=== PATIENT | female | born 1970 | race Caucasian/White ===

== ENCOUNTER 2017-01-02 08:25 | Outpatient (CLI) | payer OTHER | END 2017-01-02 08:26 | disposition home or self-care (01) | DX: E03.9 Hypothyroidism, unspecified (principal) ==

== ENCOUNTER 2017-01-21 10:58 | Outpatient (CLI) | payer OTHER ==
[2017-01-21 18:55] LABS: HCT - HEMATOCRIT 44.9 % (37.0-47.0); HGB - HEMOGLOBIN 14.7 g/dL (12.0-16.0); MEAN CORPUSCULAR HEMOGLOBIN 27.5 pg (27.0-31.0); MEAN CORPUSCULAR HGB CONC 32.8 g/dL (32.0-36.0); MEAN PLATELET VOLUME 9.3 fL (7.9-10.8); RED BLOOD COUNT 5.35 10^6/uL (4.20-5.40); RED CELL DISTRIBUTION WIDTH 14.8 % (12.0-15.0); WHITE BLOOD COUNT 6.2 x10^3/uL (4.8-10.8)
[2017-01-21 19:15] LABS: ALBUMIN/GLOBULIN RATIO 1.1 (1.0-2.2); BILIRUBIN,TOTAL 0.5 mg/dL (0.2-1.0); BUN - BLOOD UREA NITROGEN 11 mg/dL (6-20); CALCIUM 9.3 mg/dL (8.5-10.3); CARBON DIOXIDE - CO2 27 mmol/L (21-32); CHLORIDE 105 mmol/L (101-111); CREATININE 0.7 mg/dL (0.4-1.0); GFR - MDRD 91 (>89); GLUCOSE 96 mg/dL (70-100); POTASSIUM 4.5 mmol/L (3.5-5.0); SODIUM 138 mmol/L (135-145); TOTAL PROTEIN 7.8 g/dL (6.7-8.2); URIC ACID 4.8 mg/dL (2.6-7.2)
== END 2017-01-21 10:59 | disposition home or self-care (01) ==
LOC: LAB.WCP 10:58
PROVIDERS: ATTEND Family Medicine
DX: M10.9 Gout, unspecified (principal)
CPT/HCPCS: 36415; 80053; 84550; 85651; 86140

== ENCOUNTER 2017-04-28 09:28 | Outpatient (CLI) | payer OTHER ==
[2017-04-28 13:59] LABS: BASOPHILS % (AUTO) 0.9 %; EOSINOPHILS # (AUTO) 0.1 10^3/uL (0.0-0.7); EOSINOPHILS % (AUTO) 1.8 %; HCT - HEMATOCRIT 43.7 % (37.0-47.0); HGB - HEMOGLOBIN 14.8 g/dL (12.0-16.0); LYMPHOCYTES # (AUTO) 1.5 10^3/uL (1.5-3.5); LYMPHOCYTES % (AUTO) 28.6 %; MEAN CORPUSCULAR HGB CONC 33.8 g/dL (32.0-36.0); MEAN CORPUSCULAR VOLUME 82.7 fL (81.0-99.0); MEAN PLATELET VOLUME 9.3 fL (7.9-10.8); MONOCYTES # (AUTO) 0.4 10^3/uL (0.0-1.0); MONOCYTES % (AUTO) 7.3 %; NEUTROPHILS # (AUTO) 3.2 10^3/uL (1.5-6.6); NEUTROPHILS % (AUTO) 61.4 %; NUCLEATED RED BLOOD CELLS AUTO 0.1 /100WBC; RED BLOOD COUNT 5.29 10^6/uL (4.20-5.40); RED CELL DISTRIBUTION WIDTH 14.5 % (12.0-15.0); UNCORRECTED WHITE BLOOD COUNT 5.3 x10^3/uL; WHITE BLOOD COUNT 5.3 x10^3/uL (4.8-10.8)
[2017-04-28 14:01] LABS: ALBUMIN/GLOBULIN RATIO 1.1 (1.0-2.2); BILIRUBIN,TOTAL 0.4 mg/dL (0.2-1.0); CALCIUM 9.2 mg/dL (8.5-10.3); CREATININE 0.8 mg/dL (0.4-1.0); POTASSIUM 4.7 mmol/L (3.5-5.0); TOTAL PROTEIN 7.9 g/dL (6.7-8.2)
== END 2017-04-28 09:29 | disposition home or self-care (01) ==
LOC: LAB.WCP 09:28
PROVIDERS: ATTEND Family Medicine
DX: R10.11 Right upper quadrant pain (principal)
CPT/HCPCS: 36415; 80053; 82150; 83690; 85025

== ENCOUNTER 2017-05-05 16:00 | Outpatient (CLI) | payer OTHER | END 2017-05-05 16:01 | disposition home or self-care (01) | LOC: LAB.R 16:00 | PROVIDERS: ATTEND Physician Assistant Medical | DX: R30.0 Dysuria (principal) | CPT/HCPCS: 87086 ==

== ENCOUNTER 2017-05-08 13:40 | Outpatient (CLI) | payer OTHER ==
[2017-05-08] MEDS ORDERED: IOPAMIDOL-300 100 ML VIAL IVP ONE (15:09)
[2017-05-08] MEDS ORDERED: IOPAMIDOL-300 50 ML VIAL PO ONE (15:09)
--- NOTE | 2017-05-08 15:40 | CT Report ---
CT OF THE ABDOMEN AND PELVIS WITH CONTRAST: 05/08/2017 CLINICAL INDICATION: Right upper quadrant pain. COMPARISON: 08/01/2011. TECHNIQUE: Axial CT images of the abdomen and pelvis were obtained with 100 mL of Isovue-300 intraven ously as well as oral contrast. FINDINGS: Limited evaluation of the lung bases is unremarkable. ABDOMEN: The previously seen intraperitoneal hemorrhage has resolved. Postoperative changes of cholec ystectomy are present. The liver, spleen, pancreas, kidneys and adrenal glands appear unremarkable. N o bowel dilatation, free gas, or free fluid is present. No abdominal adenopathy is seen. PELVIS: Postoperative changes of hysterectomy are present. Sigmoid diverticulosis is present, without CT evidence of diverticulitis. No pelvic adenopathy or free fluid is present. The osseous structures demonstrate degenerative changes. IMPRESSION: DIVERTICULOSIS, WITHOUT CT EVIDENCE OF DIVERTICULITIS. POSTOPERATIVE CHANGES. NO EVIDENT ETIOLOGY FOR PATIENT'S RIGHT UPPER QUADRANT PAIN. In accordance with CT protocol optimization, one or more of the following dose reduction techniques w ere utilized for this exam: automated exposure control, adjustment of mA and/or KV based on patient size, or use of iterative reconstructive technique. JOB #: [id number] EXT JOB #:[id number]
== END 2017-05-08 13:41 | disposition home or self-care (01) ==
LOC: DI 13:40
PROVIDERS: ATTEND Physician Assistant Medical
DX: R10.11 Right upper quadrant pain (principal); K57.30 Diverticulosis of large intestine without perforation or abscess without bleeding
CPT/HCPCS: 74177; Q9967

== ENCOUNTER 2018-03-05 09:22 | Outpatient (CLI) | payer OTHER ==
[2018-03-05 12:21] LABS: BASOPHILS # (AUTO) 0.1 10^3/uL (0.0-0.1); BASOPHILS % (AUTO) 1.2 %; EOSINOPHILS # (AUTO) 0.1 10^3/uL (0.0-0.7); EOSINOPHILS % (AUTO) 2.2 %; HGB - HEMOGLOBIN 14.2 g/dL (12.0-16.0); LYMPHOCYTES # (AUTO) 1.8 10^3/uL (1.5-3.5); LYMPHOCYTES % (AUTO) 30.9 %; MEAN CORPUSCULAR HEMOGLOBIN 28.3 pg (27.0-31.0); MEAN CORPUSCULAR HGB CONC 33.3 g/dL (32.0-36.0); MEAN CORPUSCULAR VOLUME 85.1 fL (81.0-99.0); MEAN PLATELET VOLUME 8.1 fL (7.9-10.8); MONOCYTES # (AUTO) 0.5 10^3/uL (0.0-1.0); MONOCYTES % (AUTO) 8.5 %; NEUTROPHILS # (AUTO) 3.3 10^3/uL (1.5-6.6); NEUTROPHILS % (AUTO) 57.2 %; PLT - PLATELET COUNT 263 10^3/uL (130-450); RED BLOOD COUNT 5.02 10^6/uL (4.20-5.40); RED CELL DISTRIBUTION WIDTH 14.9 % (12.0-15.0); WHITE BLOOD COUNT 5.8 x10^3/uL (4.8-10.8)
[2018-03-05 13:11] LABS: ALBUMIN 3.4 g/dL (3.2-5.5); ALBUMIN/GLOBULIN RATIO 0.8 (1.0-2.2); ALKALINE PHOSPHATASE 48 IU/L (42-121); ALT ALANINE AMINOTRANSFERASE 21 IU/L (10-60); AST ASPARTATE AMINOTRANSFERASE 19 IU/L (10-42); BILIRUBIN,TOTAL 0.3 mg/dL (0.2-1.0); BUN - BLOOD UREA NITROGEN 13 mg/dL (6-20); CALCIUM 9.1 mg/dL (8.5-10.3); CARBON DIOXIDE - CO2 26 mmol/L (21-32); CHLORIDE 102 mmol/L (101-111); CHOL/HDL RATIO 4.7 (<4.4); CHOLESTEROL 196 mg/dL; CREATININE 0.6 mg/dL (0.4-1.0); GFR - MDRD 108 (>89); GLUCOSE 101 mg/dL (70-100); HDL CHOLESTEROL 42 mg/dL; LDL CHOLESTEROL,CALCULATED 104 mg/dL; LDL/HDL RATIO 2.5 (<4.4); SODIUM 136 mmol/L (135-145); TOTAL PROTEIN 7.5 g/dL (6.7-8.2); VLDL CHOLESTEROL 50 mg/dL
[2018-03-05 13:19] LABS: HB2 TOTAL 15.2 g/dL; HEMOGLOBIN A1C 0.54 g/dL; HEMOGLOBIN A1C % 5.4 % (4.6-6.2)
== END 2018-03-05 09:23 | disposition home or self-care (01) ==
LOC: LAB.WCP 09:22
PROVIDERS: ATTEND Physician Assistant Medical
DX: Z00.00 Encounter for general adult medical examination without abnormal findings (principal); E88.81 Metabolic syndrome and other insulin resistance
CPT/HCPCS: 36415; 80053; 80061; 83036; 83721; 84443; 85025

== ENCOUNTER 2018-06-17 14:26 | Outpatient (CLI) | payer OTHER ==
--- NOTE | 2018-06-18 09:17 | Mammography Report ---
Reason: SCREENING MAMMO Procedure Date: 06/17/2018 Accession Number: [id number] / [id number] Procedure: MGN - Screening Mammo Dig Bilat CPT Code: FULL RESULT: EXAM: Screening Mammo Dig Bilat DATE: 06/17/2018 2:47 PM CLINICAL HISTORY: Routine screening TECHNIQUE: Bilateral CC and MLO views were obtained. COMPARISON: 01/08/2016 and 12/14/2013 FINDINGS: The breast tissue is heterogeneously dense. There has been no significant interval change. No suspicious masses, clustered microcalcifications, or regions of architectural distortion are identified. IMPRESSION: Negative examination. RECOMMENDATION: Routine annual screening unless otherwise clinically indicated. BIRADS CATEGORY 1: Negative STANDARD QUALIFYING STATEMENTS: 1. This examination was reviewed with the aid of Computer-Aided Detection (CAD). 2. A negative or benign imaging report should not delay biopsy if clinically suspicious findings are present. Consider surgical consultation if warrented. More than 5% of cancers are not identified by imaging. 3. Dense breasts may obscure an underlying neoplasm.
== END 2018-06-17 14:27 | disposition home or self-care (01) ==
LOC: DI.N 14:26
DX: Z12.31 Encounter for screening mammogram for malignant neoplasm of breast (principal)
CPT/HCPCS: 77067

== ENCOUNTER 2018-06-29 11:47 | Outpatient (CLI) | payer OTHER ==
[2018-06-29 18:43] LABS: BASOPHILS # (AUTO) 0.2 10^3/uL (0.0-0.1); BASOPHILS % (AUTO) 3.3 %; EOSINOPHILS # (AUTO) 0.1 10^3/uL (0.0-0.7); EOSINOPHILS % (AUTO) 1.5 %; HGB - HEMOGLOBIN 14.8 g/dL (12.0-16.0); LYMPHOCYTES # (AUTO) 2.2 10^3/uL (1.5-3.5); LYMPHOCYTES % (AUTO) 34.1 %; MEAN CORPUSCULAR HEMOGLOBIN 28.1 pg (27.0-31.0); MEAN CORPUSCULAR HGB CONC 33.5 g/dL (32.0-36.0); MEAN CORPUSCULAR VOLUME 83.9 fL (81.0-99.0); MEAN PLATELET VOLUME 8.6 fL (7.9-10.8); MONOCYTES # (AUTO) 0.5 10^3/uL (0.0-1.0); MONOCYTES % (AUTO) 8.6 %; NEUTROPHILS # (AUTO) 3.3 10^3/uL (1.5-6.6); NEUTROPHILS % (AUTO) 52.5 %; PLT - PLATELET COUNT 246 10^3/uL (130-450); RED BLOOD COUNT 5.27 10^6/uL (4.20-5.40); RED CELL DISTRIBUTION WIDTH 15.5 % (12.0-15.0); WHITE BLOOD COUNT 6.3 x10^3/uL (4.8-10.8)
[2018-06-29 18:55] LABS: ALBUMIN 4.1 g/dL (3.2-5.5); ALBUMIN/GLOBULIN RATIO 1.1 (1.0-2.2); BILIRUBIN,TOTAL 0.5 mg/dL (0.2-1.0); CALCIUM 9.6 mg/dL (8.5-10.3); CREATININE 0.8 mg/dL (0.4-1.0); TOTAL PROTEIN 7.9 g/dL (6.7-8.2)
== END 2018-06-29 11:48 | disposition home or self-care (01) ==
LOC: LAB.WCP 11:47
PROVIDERS: ATTEND Nurse Practitioner
DX: R10.31 Right lower quadrant pain (principal); K62.5 Hemorrhage of anus and rectum
CPT/HCPCS: 36415; 80053; 85025

== ENCOUNTER 2018-06-29 15:39 | Outpatient (CLI) | payer OTHER ==
[2018-06-29] MEDS ORDERED: IOPAMIDOL-300 100 ML VIAL ONE (15:47)
[2018-06-29] MEDS ORDERED: IOPAMIDOL-300 50 ML VIAL ONE (15:47)
[2018-06-29] MEDS ORDERED: IOPAMIDOL-300 50 ML VIAL PO ONE (17:19)
[2018-06-29] MEDS ORDERED: IOPAMIDOL-300 100 ML VIAL IVP ONE (17:19)
--- NOTE | 2018-06-29 17:55 | CT Report ---
Reason: ABDOMINAL PAIN,RIGHT LOWER QUADRANT,RECTAL BLEEDIN Procedure Date: 06/29/2018 Accession Number: [id number] / [id number] Procedure: CT - Abdomen/Pelvis W/ CPT Code: FULL RESULT: EXAM: CT ABDOMEN AND PELVIS EXAM DATE: 06/29/2018 05:12 PM. CLINICAL HISTORY: Abdominal pain, right lower quadrant, rectal bleeding. COMPARISONS: ABDOMEN/PELVIS W/ 05/08/2017 3:03 PM. TECHNIQUE: Routine helical CT imaging was performed through the abdomen and pelvis. IV contrast: ISOVUE 300 100mL. Enteric contrast: Oral contrast. Reconstructions: Coronal and sagittal. In accordance with CT protocol optimization, one or more of the following dose reduction techniques were utilized for this exam: automated exposure control, adjustment of mA and/or KV based on patient size, or use of iterative reconstructive technique. FINDINGS: Lung Bases: Unremarkable. Liver: Stable enlarged, fatty infiltration. Gallbladder/Bile Ducts: Cholecystectomy. No biliary duct dilatation. Spleen: Normal. Pancreas: Normal. Adrenal Glands: Normal. Kidneys: Normal. No masses or hydronephrosis. Peritoneal Cavity/Bowel: Diverticula off the colon. Oral contrast extends through to the terminal ileum. No free fluid, free air or adenopathy. No masses or acute inflammatory process. The appendix is well visualized and normal. Pelvic Organs: Remote hysterectomy. No stones in the small caliber urinary bladder. No adnexal mass lesions nor free fluid. Normal rectum. Vasculature: No aneurysms or other significant abnormality. Bones: No significant abnormality. Other: None. IMPRESSION: 1. Hepatomegaly with fatty infiltration. 2. Colonic diverticulosis. 3. Stable, unremarkable exam. No radiographic explanation for this lady's presenting signs and symptoms. RADIA
== END 2018-06-29 15:40 | disposition home or self-care (01) ==
LOC: DI 15:39
PROVIDERS: ATTEND Nurse Practitioner
DX: R10.31 Right lower quadrant pain (principal); K62.5 Hemorrhage of anus and rectum; K76.0 Fatty (change of) liver, not elsewhere classified; K57.30 Diverticulosis of large intestine without perforation or abscess without bleeding
CPT/HCPCS: 74177; Q9967; 36415; 80053; 85025

== ENCOUNTER 2019-01-27 09:53 | Day surgery (SDC) | payer OTHER ==
[~2019-01-27 09:53] MED LIST: LIDO GARGLE 30 ML BOTTLE ONE
[2019-01-27] MEDS ORDERED: PROPOFOL 200 MG/20 ML VIAL IVP ONE (09:54)
[2019-01-27] MEDS ORDERED: MIDAZOLAM 2 MG/2 ML VIAL IVP ONE (09:54)
[2019-01-27] MEDS ORDERED: fentaNYL 250 MCG/5 ML VIAL IVP ONE (09:54)
[2019-01-27] MEDS ORDERED: LIDOCAINE-MPF 2% 5 ML VIAL IM ONE (09:54)
[2019-01-27] MEDS ORDERED: LACTATED RINGERS 1,000 ML IV ONE ×2 (10:31→12:49)
[2019-01-27] MEDS ORDERED: LIDO GARGLE 30 ML BOTTLE TOP ONE (11:31)
--- NOTE | 2019-01-27 12:05 | ANESTHESIA ---
Pre-Anesthesia VS, & Labs - Diagnosis rectal bleeding - Procedure colonoscopy, egd Vital Signs: Temp Pulse Resp BP Pulse Ox 36.8 C 82 16 144/85 H 97 01/27/19 10:03 01/27/19 10:03 01/27/19 10:03 01/27/19 10:03 01/27/19 10:03 Height 5 ft 4 in Weight (kg) 109.7 kg Body Mass Index 42.0 - NPO >8 hours - Is Patient ?: No Home Medications and Allergies Indomethacin 25 mg PO DAILY PRN 06/08/15 Omeprazole [Prilosec] 20 mg PO DAILY 06/08/15 Thyroid,Pork [[place] Thyroid] 60 mg PO DAILY 06/08/15 diazePAM [Diazepam] 7.5 mg PO DAILY 06/08/15 Allergies/Adverse Reactions: Allergies Allergy/AdvReac Type Severity Reaction Status Date / Time alprazolam [From Xanax] Allergy Unknown Verified 01/27/19 10:17 buspirone Allergy Unknown Verified 01/27/19 10:17 levothyroxine sodium Allergy Unknown Verified 01/27/19 10:17 [From Synthroid] morphine Allergy Unknown Verified 01/27/19 10:17 Anes History & Medical History - Anesthetic History Anesthesia Complications: reports: Post-Operative Nausea/Vomiting - Medical History Cardiovascular: reports: Other Pulmonary: reports: Sleep apnea Gastrointestinal: reports: GERD Urinary: reports: None Musculoskeletal: reports: Osteoarthritis, Gout, Other Endocrine/Autoimmune: reports: HyPOthyroidism Skin: reports: None Smoking Status: Current every day smoker - Surgical History General: Cholecystectomy Gynecologic: Hysterectomy Exam Dental: WNL, Poor dentition Mouth Opening: Greater than 4 Fingerbreadths Mallampati classification: II Respiratory: Lungs clear Cardiovascular: Regular rate Plan Anesthesia Type: MAC Consent for Procedure(s) Verified and Reviewed: No Code Status: Attempt Resuscitation ASA classification: 2-Mild systemic disease (rescue endo) Is this case an emergency?: Yes
[2019-01-27 13:28] VITALS: BP 134/64
== END 2019-01-27 09:54 | disposition home or self-care (01) ==
LOC: SDS 09:53
PROVIDERS: ATTEND Internal Medicine Gastroenterology
PROC: 0DBN8ZZ Excision of Sigmoid Colon, Via Natural or Artificial Opening Endoscopic (ICD-10-PCS; 2019-01-27)
PROC: 0DB98ZX Excision of Duodenum, Via Natural or Artificial Opening Endoscopic, Diagnostic (ICD-10-PCS; principal; 2019-01-27 11:30)
PROC: 0DB78ZX Excision of Stomach, Pylorus, Via Natural or Artificial Opening Endoscopic, Diagnostic (ICD-10-PCS; 2019-01-27 11:30)
DX: K63.5 Polyp of colon (principal); K57.30 Diverticulosis of large intestine without perforation or abscess without bleeding; K21.9 Gastro-esophageal reflux disease without esophagitis; K64.8 Other hemorrhoids; K58.9 Irritable bowel syndrome, unspecified; G47.33 Obstructive sleep apnea (adult) (pediatric); E88.81 Metabolic syndrome and other insulin resistance; E78.5 Hyperlipidemia, unspecified; M10.9 Gout, unspecified; E66.01 Morbid (severe) obesity due to excess calories; E03.9 Hypothyroidism, unspecified; F41.9 Anxiety disorder, unspecified; F32.9 Major depressive disorder, single episode, unspecified; F17.210 Nicotine dependence, cigarettes, uncomplicated; Z90.49 Acquired absence of other specified parts of digestive tract
CPT/HCPCS: 43239; 45380; A9270; J3010; J7120

== ENCOUNTER 2019-06-14 09:00 | Outpatient (CLI) | payer OTHER ==
--- NOTE | 2019-06-14 16:02 | XRAY Report ---
Reason: LEFT 3RD FINGER PAIN Procedure Date: 06/14/2019 Accession Number: [id number] / [id number] Procedure: WCP - Finger(s) LT CPT Code: FULL RESULT: EXAM: LEFT THIRD DIGIT RADIOGRAPHY EXAM DATE: 06/14/2019 03:55 PM. CLINICAL HISTORY: Left third finger pain. COMPARISON: None. TECHNIQUE: 3 views. FINDINGS: Bones: Normal. No fracture or bone lesion. Joints: Normal. No subluxations. Soft Tissues: Questionable subtle density projecting over the medial portion of the soft tissues of the proximal phalanx of the third ray, not felt to represent a foreign body. IMPRESSION: No fracture or dislocation. No definite radiopaque foreign body. If there is concern for a foreign body, see discussion above and correlate to physical examination for focal tenderness. RADIA
== END 2019-06-14 23:59 | disposition home or self-care (01) ==
LOC: DI.WCP 09:00 → EDSTATUS 12:35 → DI.WCP 23:59
PROVIDERS: ATTEND Physician Assistant
DX: M79.645 Pain in left finger(s) (principal)
CPT/HCPCS: 73140

== ENCOUNTER 2019-07-07 15:35 | Outpatient (CLI) | payer OTHER ==
--- NOTE | 2019-07-08 10:37 | Ultrasound Report ---
Reason: LYMPHADENOPATHY Procedure Date: 07/07/2019 Accession Number: [id number] / [id number] Procedure: US - Chest CPT Code: Final Report FULL RESULT: EXAM: ULTRASOUND 07/07/2019 04:10 PM LYMPHADENOPATHY. NONE TECHNIQUE: Real-time sonographic imaging was performed by the gluing machine operator automatic utilizing color-flow. Multiple admissions representative static images were saved for review. FINDINGS: No cysts, lymph node or mass identified in area of concern IMPRESSION: No ultrasonographic findings in the right axillary region. Clinical follow-up RADIA
== END 2019-07-07 15:36 | disposition home or self-care (01) ==
LOC: DI 15:35
PROVIDERS: ATTEND Physician Assistant
DX: R59.0 Localized enlarged lymph nodes (principal)
CPT/HCPCS: 76604

== ENCOUNTER 2019-07-08 12:15 | Outpatient (CLI) | payer OTHER ==
--- NOTE | 2019-07-11 08:20 | Mammography Report ---
Reason: ROUTINE MAMMO Procedure Date: 07/08/2019 Accession Number: [id number] / [id number] Procedure: MGN - Screening Mammo Dig Bilat CPT Code: Final Report FULL RESULT: EXAM: Screening Mammo Dig Bilat DATE: 07/08/2019 12:49 PM CLINICAL HISTORY: Routine screening. No reported personal or family history of breast cancer. TECHNIQUE: (B) - Bilateral CC and MLO views were obtained. COMPARISON: 06/17/2018 through 12/14/2013 PARENCHYMAL PATTERN: (D) - The breasts demonstrate heterogeneously dense fibroglandular parenchyma bilaterally. FINDINGS: Bilateral breasts: There are no suspicious masses, calcifications, or areas of distortion. IMPRESSION: Negative examination. BI-RADS category 1. RECOMMENDATION: (ANNUAL) - Recommend routine annual screening mammography. BI-RADS CATEGORY: (1) - Negative. STANDARD QUALIFYING STATEMENTS: 1. This examination was not reviewed with the aid of Computer-Aided Detection (CAD). 2. A negative or benign imaging report should not preclude biopsy if clinically suspicious findings are present. 3. Dense breasts may obscure an underlying neoplasm. 4. This examination was reviewed without the aid of 3D breast imaging (tomosynthesis).
== END 2019-07-08 12:16 | disposition home or self-care (01) ==
LOC: DI.N 12:15
DX: Z12.31 Encounter for screening mammogram for malignant neoplasm of breast (principal)
CPT/HCPCS: 77067

== ENCOUNTER 2020-05-19 15:36 | Outpatient (CLI) | payer OTHER ==
--- NOTE | 2020-05-21 14:32 | MRI Report ---
PROCEDURE: Thoracic Spine W/O INDICATIONS: PAIN IN THORACIC SPINE, LOW BACK PAIN TECHNIQUE: Noncontrast sagittal T1 spine echo and T2 fast spin echo, sagittal STIR, axial T1 and T2 fast spin ec ho through the thoracic spine. COMPARISON: None. FINDINGS: Image quality: Excellent. Alignment and Curvature: There is trace T1-T2 and T2-T3 anterolisthesis. There is convex right curva ture of the upper thoracic spine. 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 Reactive endplate changes noted ad jacent to the T9-T10 and T10-T11 discs. No acute vertebral body compression fractures. Spinal Cord: Visualized spinal cord is normal in size and signal. Paraspinous Soft Tissues: No paravertebral masses. Miscellaneous: Mild degenerative disc changes noted throughout the thoracic spine. Mild mid thoracic spine facet arthropathy. On axial images, central canal and foramina appear widely patent at all sca nned levels. IMPRESSION: 1. Fused T3 and T4 vertebral bodies. 2. Multilevel degenerative disc disease. 3. Multilevel facet arthropathy. 4. No central stenosis. 5. No neural foraminal narrowing. 6. No neural compression. 7. No vertebral body compression fracture. Reviewed by: Tonya Houston MD, PhD on 05/21/2020 2:31 PM PDT Approved by: Tonya Houston MD, PhD on 05/21/2020 2:31 PM PDT Station ID: [id number]
--- NOTE | 2020-05-21 15:19 | MRI Report ---
PROCEDURE: Lumbar Spine W/O INDICATIONS: LOW BACK PAIN TECHNIQUE: Noncontrast sagittal T1 spin echo and T2 fast echo, sagittal STIR, axial T1 and T2 fast spin echo thr ough the lumbar spine. In cases with scoliosis, additional coronal T2 fast spin echo may be performe d. COMPARISON: None. FINDINGS: Image quality: Excellent. Alignment and Curvature: There is normal bony alignment. Bone Marrow: Marrow is of normal overall signal. No acute vertebral body compression fractures. Spinal Cord: Conus medullaris terminates at the L1-L2 disc level. Visualized cord demonstrates norm al signal and size. Paraspinous Soft Tissues: No paravertebral masses. T12-L1: Normal in appearance. L1-L2: Normal in appearance. L2-L3: Normal in appearance. L3-L4: Loss of disc signal. Mild, diffuse disc bulge. Large left central disc protrusion. Disc prot rusion abuts and displaces the traversing left L4 nerve root. Mild narrowing of the central canal. No neural foraminal narrowing. L4-L5: Loss of disc signal. Minimal, diffuse disc bulge. No central stenosis. No neural foraminal n arrowing. No neural compression. L5-S1: Normal in appearance. IMPRESSION: 1. Mild L3-L4 and L4-L5 degenerative disc disease. 2. Large L3-L4 left central disc protrusion which abuts and displaces the traversing left L4 nerve ro ot. Please correlate with clinical data. 3. Mild L3-L4 central canal narrowing. 4. No neural foraminal narrowing. Reviewed by: Tonya Houston MD, PhD on 05/21/2020 3:18 PM PDT Approved by: Tonya Houston MD, PhD on 05/21/2020 3:18 PM PDT Station ID: [id number]
== END 2020-05-19 15:37 | disposition home or self-care (01) ==
LOC: DI 15:36
PROVIDERS: ATTEND Physician Assistant Medical
DX: M51.34 Other intervertebral disc degeneration, thoracic region (principal); M51.36 Other intervertebral disc degeneration, lumbar region; M48.061 Spinal stenosis, lumbar region without neurogenic claudication; M51.26 Other intervertebral disc displacement, lumbar region
CPT/HCPCS: 72146; 72148

== ENCOUNTER 2020-08-03 12:35 | Outpatient (CLI) | payer OTHER ==
--- NOTE | 2020-08-06 09:47 | Mammography Report ---
BILATERAL DIGITAL SCREENING MAMMOGRAM 3D/2D: 08/03/2020 CLINICAL: Routine screening. Comparison is made to exams dated: 07/08/2019 mammogram, 06/17/2018 mammogram, 01/08/2016 mammogram, a nd 12/14/2013 mammogram - [facility]. The tissue of both breasts is heterogeneously dense. This may lower the sensitivity of mammography. No significant masses, calcifications, or other findings are seen in either breast. There has been no significant interval change. IMPRESSION: NEGATIVE There is no mammographic evidence of malignancy. A 1 year screening mammogram is recommended. This exam was interpreted at Station ID: [id number]. NOTE: For mammograms, a report in lay terms will be sent to the patient. Approximately 15% of breast malignancies will not be visualized mammographically. In the management of a palpable breast mass, a negative mammogram must not discourage biopsy of a clinically suspicious lesion. Electronically Signed By: Reuben Mello acr/penrad:08/03/2020 14:37:13 ACR BI-RADS Category 1: Negative 3341F PARENCHYMAL PATTERN: (D) - The breast(s) demonstrate(s) heterogeneously dense fibroglandular robin quintana. BI-RADS CATEGORY: (1) - 1 RECOMMENDATION: (ANNUAL) - Recommend routine annual screening mammography. [id number] 1 year screening LATERALITY: (B)
== END 2020-08-03 12:36 | disposition home or self-care (01) ==
LOC: DI.N 12:35
DX: Z12.31 Encounter for screening mammogram for malignant neoplasm of breast (principal)

== ENCOUNTER 2021-02-27 20:19 | Emergency (ER) | payer OTHER ==
[2021-02-27] MEDS ORDERED: BUFFERED LIDOCAINE 10 ML SYRINGE SUBQ STA (21:02)
[2021-02-27] MEDS ORDERED: oxyCODONE/ACET 5/325 Prepack 4 PO STA (21:03)
--- NOTE | 2021-02-27 21:06 | ED Physician Documentation ---
History of Present Illness - Stated complaint Stated Complaint: SOA/MOUTH PX/SWELLING - Chief complaint Chief Complaint: Heent - History obtained from History obtained from: Patient - Additonal information Additional information: 50-year-old woman with history of anxiety, chronic back pain, poor dentition, presents with right posterior molar pain that has been progressive over the past couple days, associated with progressive jaw pain and trismus today. Also with subjective shortness of breath and one episode of nonbloody nonbilious nausea and vomiting. She has chills but no objective temperature at home. Review of Systems Constitutional: reports: Chills, Myalgias Ears: denies: Ear pain Throat: reports: Dental pain / toothache Cardiac: denies: Chest pain / pressure Respiratory: reports: Dyspnea. 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 : None HEENT: Chronic vision loss Psych: Panic attacks Musculoskeletal: Osteoarthritis, Gout, Other Derm: None - Past Surgical History Past Surgical History: Yes General: Cholecystectomy /ALUMNAE SECRETARY: Hysterectomy - Present Medications Home Medications: Ambulatory Orders Medication Instructions Recorded Confirmed Indomethacin 25 mg PO DAILY PRN 06/08/15 02/27/21 Omeprazole [Prilosec] 20 mg PO DAILY 06/08/15 02/27/21 Thyroid,Pork [[place] Thyroid] 60 mg PO DAILY 06/08/15 02/27/21 diazePAM [Diazepam] 7.5 mg PO DAILY 06/08/15 02/27/21 Gabapentin [Neurontin] 300 mg PO HS 02/27/21 02/27/21 Ondansetron Odt [Zofran Odt] 4 mg TL Q6H PRN #10 tablet 02/27/21 clindamycin HCL [Clindamycin HCl] 300 mg PO Q6H #40 cap 02/27/21 - Allergies Allergies/Adverse Reactions: Allergies Allergy/AdvReac Type Severity Reaction Status Date / Time alprazolam [From Xanax] Allergy Unknown Verified 02/27/21 20:28 buspirone Allergy Unknown Verified 02/27/21 20:28 levothyroxine sodium Allergy Unknown Verified 02/27/21 20:28 [From Synthroid] morphine Allergy Unknown Verified 02/27/21 20:28 - Social History Does the pt smoke?: Yes Smoking Status: Current every day smoker Does the pt drink ETOH?: No Does the pt have substance abuse?: No - Immunizations Immunizations are current?: No - POLST Patient has POLST: No PD ED PE NORMAL - Vitals Vital signs reviewed: Yes - General General: Alert and oriented X 3, No acute distress, Well developed/nourished - HEENT HEENT: Atraumatic, PERRL, EOMI, Moist mucous membranes, Pharynx benign, Other (R lower first molar with partial avulsion, silver crown in place. ttp with mild periodontal swelling. discomfort with opening and closing the jaw) - Neck Neck: Supple, no meningeal sign, Other (Normal upper airway breath sounds on auscultation of the neck) - Cardiac Cardiac: RRR - Derm Derm: Normal color, Warm and dry Results - Vitals Vitals: Vital Signs - 24 hr 02/27/21 02/27/21 20:23 21:02 Temperature 37.1 C Heart Rate 89 Respiratory 20 17 Rate Blood Pressure 174/89 H O2 Saturation 97 Oxygen O2 Source Room air Procedures - General procedure General procedure: . Dental block using 2.5cc buffered lidocaine performed to the right lower molar with relief of symptoms patient tolerated well. EBL minimal. PD MEDICAL DECISION MAKING - ED course ED course: 50-year-old woman presented with dental infection. protecting airway appropriately. no evidence of ludwigs. tolerating secretions. normal speech. Dental block performed with improvement. antibiotics prescribed and return precautions given. patient will f/u with dental. Departure - Departure Disposition: 01 Home, Self Care Clinical Impression: Dental infection Condition: Good Instructions: ED Abscess Dental Follow-Up: EDUARDO ANN DDS [Physician No Access] - Prescriptions: clindamycin HCL [Clindamycin HCl] 300 mg PO Q6H #40 cap Ondansetron Odt [Zofran Odt] 4 mg TL Q6H PRN #10 tablet PRN Reason: Nausea / Vomiting Comments: You were seen in the emergency department for tooth infection. Please take your antibiotics as prescribed and follow-up with a dentist as soon as possible. Return to the emergency department if you have any new or worsening symptoms or concerns.
[2021-02-27 21:49] VITALS: BP 151/81
== END 2021-02-27 21:48 | disposition home or self-care (01) ==
LOC: ED 20:19
DX: K04.7 Periapical abscess without sinus (principal); F17.200 Nicotine dependence, unspecified, uncomplicated
CPT/HCPCS: 64400

== ENCOUNTER 2021-07-22 08:00 | Outpatient (CLI) | payer OTHER ==
[2021-07-22 12:43] LABS: BASOPHILS # (AUTO) 0.1 10^3/uL (0.0-0.1); BASOPHILS % (AUTO) 0.8 %; EOSINOPHILS # (AUTO) 0.1 10^3/uL (0.0-0.7); EOSINOPHILS % (AUTO) 1.7 %; HCT - HEMATOCRIT 43.9 % (37.0-47.0); HGB - HEMOGLOBIN 13.8 g/dL (12.0-16.0); LYMPHOCYTES # (AUTO) 1.6 10^3/uL (1.5-3.5); LYMPHOCYTES % (AUTO) 26.8 %; MEAN CORPUSCULAR HEMOGLOBIN 26.9 pg (27.0-31.0); MEAN CORPUSCULAR HGB CONC 31.4 g/dL (32.0-36.0); MEAN CORPUSCULAR VOLUME 85.6 fL (81.0-99.0); MEAN PLATELET VOLUME 10.7 fL (7.9-10.8); MONOCYTES # (AUTO) 0.4 10^3/uL (0.0-1.0); MONOCYTES % (AUTO) 7.3 %; NEUTROPHILS # (AUTO) 3.8 10^3/uL (1.5-6.6); NEUTROPHILS % (AUTO) 63.2 %; PLT - PLATELET COUNT 276 10^3/uL (130-450); RED BLOOD COUNT 5.13 10^6/uL (4.20-5.40); RED CELL DISTRIBUTION WIDTH 14.1 % (12.0-15.0)
[2021-07-22 13:27] LABS: ALBUMIN/GLOBULIN RATIO 1.1 (1.0-2.2); ALKALINE PHOSPHATASE 49 IU/L (42-121); ALT ALANINE AMINOTRANSFERASE 19 IU/L (10-60); AST ASPARTATE AMINOTRANSFERASE 18 IU/L (10-42); BILIRUBIN,TOTAL 0.2 mg/dL (0.2-1.0); BUN - BLOOD UREA NITROGEN 16 mg/dL (6-20); CALCIUM 9.2 mg/dL (8.5-10.3); CARBON DIOXIDE - CO2 28 mmol/L (21-32); CHLORIDE 101 mmol/L (101-111); CHOL/HDL RATIO 4.9 (<4.4); CHOLESTEROL 207 mg/dL; CREATININE 0.7 mg/dL (0.4-1.0); GFR - MDRD 89 (>89); GLUCOSE 94 mg/dL (70-100); HDL CHOLESTEROL 42 mg/dL; LDL CHOLESTEROL,CALCULATED 128 mg/dL; POTASSIUM 4.4 mmol/L (3.5-5.0); SODIUM 138 mmol/L (135-145); TOTAL PROTEIN 7.7 g/dL (6.7-8.2); TRIGLYCERIDES 185 mg/dL; VLDL CHOLESTEROL 37 mg/dL
[2021-07-22 13:36] LABS: THYROID STIMULATING HORMONE 3.84 uIU/mL (0.34-5.60)
== END 2021-07-22 23:59 | disposition home or self-care (01) ==
LOC: LAB.WCP 08:00
PROVIDERS: ATTEND Physician Assistant Medical
DX: Z00.00 Encounter for general adult medical examination without abnormal findings (principal)
CPT/HCPCS: 36415; 80053; 80061; 83721; 84443; 85025

== ENCOUNTER 2022-01-18 15:14 | Emergency (ER) | payer OTHER ==
[2022-01-18 15:26] VITALS: BP 162/87
[2022-01-18] MEDS ORDERED: oxyCODONE 5 MG TABLET PO STA (15:45)
--- NOTE | 2022-01-18 15:47 | ED Physician Documentation ---
History of Present Illness - Stated complaint Stated Complaint: L LEG PAIN/FEMALE - Chief complaint Chief Complaint: Abd Pain - History obtained from History obtained from: Patient - History of Present Illness Timing: How many days ago Pain level max: 8 Pain level now: 6 - Additonal information Additional information: Patient is a 51-year-old female who presents to the emergency department complaining of perirectal pain ongoing for the past 3 to 4 days. Gradually getting worse. She states that it started with swelling and pain about 3 days ago. She saw a primary care provider 2 days ago who told her that it may be hemorrhoids versus an abscess. Put her on hydrocortisone suppositories, but she is continue to worsen. No fevers or chills. She states the pain is increasing. Has not taken anything for pain. Worse with palpation, sitting, walking. Nothing makes it better. 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 : None HEENT: Chronic vision loss Psych: Panic attacks Musculoskeletal: Osteoarthritis, Gout, Other Derm: None - Past Surgical History Past Surgical History: Yes General: Cholecystectomy /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: Hysterectomy - Present Medications Home Medications: Ambulatory Orders Medication Instructions Recorded Confirmed Indomethacin 25 mg PO DAILY PRN 06/08/15 02/27/21 Omeprazole [Prilosec] 20 mg PO DAILY 06/08/15 02/27/21 Thyroid,Pork [[place] Thyroid] 60 mg PO DAILY 06/08/15 02/27/21 diazePAM [Diazepam] 7.5 mg PO DAILY 06/08/15 02/27/21 Gabapentin [Neurontin] 300 mg PO HS 02/27/21 02/27/21 Ondansetron Odt [Zofran Odt] 4 mg TL Q6H PRN #10 tablet 02/27/21 clindamycin HCL [Clindamycin HCl] 300 mg PO Q6H #40 cap 02/27/21 Ondansetron Odt [Zofran] 4 mg TL Q6H PRN #10 tablet 01/18/22 Oxycodone HCl/Acetaminophen 1 - 2 each PO Q6H PRN #14 tablet 01/18/22 [Percocet 5-325 mg Tablet] clindamycin HCL [Cleocin HCl] 300 mg PO Q6H #40 cap 01/18/22 - Allergies Allergies/Adverse Reactions: Allergies Allergy/AdvReac Type Severity Reaction Status Date / Time alprazolam [From Xanax] Allergy Unknown Verified 02/27/21 20:28 buspirone Allergy Unknown Verified 02/27/21 20:28 hydromorphone [From Dilaudid] Allergy Hallucinati Verified 01/18/22 15:26 ons levothyroxine sodium Allergy Unknown Verified 02/27/21 20:28 [From Synthroid] morphine Allergy Unknown Verified 02/27/21 20:28 - Social History Does the pt smoke?: Yes Smoking Status: Current every day smoker Does the pt drink ETOH?: No Does the pt have substance abuse?: No - Immunizations Immunizations are current?: No - POLST Patient has POLST: No PD ED PE NORMAL - Vitals Vital signs reviewed: Yes - General General: Alert and oriented X 3, No acute distress - HEENT HEENT: Moist mucous membranes - Neck Neck: Supple, no meningeal sign - Cardiac Cardiac: RRR, Strong equal pulses - Respiratory Respiratory: No respiratory distress, Clear bilaterally - Abdomen Abdomen: Soft, Non tender, Non distended - Rectal Rectal: Other (Mild swelling and induration to the left perirectal area. Mild tenderness on rectal exam. Does have hemorrhoids, but they are not inflamed or thrombosed) - Derm Derm: Warm and dry - Neuro Neuro: Alert and oriented X 3 - Psych Psych: Normal mood, Normal affect Results - Vitals Vitals: Vital Signs - 24 hr 01/18/22 15:22 Temperature 37.0 C Heart Rate 93 Respiratory 16 Rate Blood Pressure 162/87 H O2 Saturation 100 Oxygen O2 Source Room air - Labs Labs: Microbiology 01/18/22 16:42 Wound Culture - Preliminary Abscess Laboratory Tests 01/18/22 01/18/22 13:50 13:50 WBC 9.4 RBC 4.94 Hgb 13.3 Hct 41.8 MCV 84.6 MCH 26.9 L MCHC 31.8 L RDW 14.8 Plt Count 241 MPV 9.7 Neut # (Auto) 6.4 Lymph # (Auto) 2.0 Grimes # (Auto) 0.8 Eos # (Auto) 0.2 Baso # (Auto) 0.0 Absolute Nucleated RBC 0.00 Nucleated RBC % 0.0 Sodium 138 Potassium 4.0 Chloride 102 Carbon Dioxide 25 Anion Gap 11.0 BUN 17 Creatinine 0.8 Estimated GFR (MDRD) 76 L Glucose 90 Calcium 9.1 - Rads (name of study) CT pelvis Radiology: Final report received, EMP read contemporaneously, See rad report (Perianal abscess) Procedures - Abscess I&D (location) Perianal, left Preparation: Lidocaine 1%, With epi Incision: Incised with scalpel, Purulent drainage, Culture obtained Other: Pt tolerated well, Dressing applied, Antibiotic prescribed PD MEDICAL DECISION MAKING - ED course Complexity details: reviewed results, re-evaluated patient, considered differential, d/w patient ED course: 51-year-old female with a small perianal abscess on CT scan. Does not involve any deeper structures. Incision and drainage performed. Tolerated well. Wound culture sent. Will place on antibiotics and pain medication for home. Encourage sitz bath's as well. Patient counseled regarding signs and symptoms for which I believe and urgent re-evaluation would be necessary. Patient with good understanding of and agreement to plan and is comfortable going home at this time This document was made in part using voice recognition software. While efforts are made to proofread this document, sound alike and grammatical errors may occur. Departure - Departure Disposition: 01 Home, Self Care Clinical Impression: Abscess Condition: Good Instructions: Sitz Bath, ED Abscess IandD Follow-Up: Sruthi Groves PA-C [Primary Care Provider] - Within 3 Days Prescriptions: clindamycin HCL [Cleocin HCl] 300 mg PO Q6H #40 cap Oxycodone HCl/Acetaminophen [Percocet 5-325 mg Tablet] 1 - 2 each PO Q6H PRN #14 tablet PRN Reason: pain Ondansetron Odt [Zofran] 4 mg TL Q6H PRN #10 tablet PRN Reason: Nausea / Vomiting Comments: Your prescriptions were sent to [facility]. Please take all antibiotics until gone. Please return if you worsen. I would encourage sitz bath's to help encourage continued drainage at home. This should improve over the next 24 hours. Please follow-up with your doctor in 2 to 3 days for a wound check. I am prescribing a short course of narcotic pain medication for you. These are potentially dangerous and addictive medications that should be used carefully. These medications may constipate you. Take an lthc-klq-pkkineh stool softener (docusate) twice daily with plenty of water while taking these medications. If you go 24 hours without a bowel movement, take vder-jkl-dbyvvlk miralax, per package instructions. Do not drink or drive while taking these medications. If you received narcotic or sedating medications while in the emergency department, do not drive for 24 hours. Store this medication in a safe, secure place and out of reach of children. It is a violation of federal law to give or sell this medication to another person or to use in a manner other than prescribed. The ED will not refill narcotic prescriptions, including prescriptions lost or stolen. To dispose of unwanted medications: 1. [facility] at [address] in [place] has a medication drop box. They accept prescription medications (in pil l form) Thursday through Thursday 9:00 a.m. to 5:00 p.m. 2. The [facility] [employer] accepts prescription medications (in pill form only) for disposal year round. Call for more information. 3. Contact the [facility] for the next [employer] sponsored prescription drug collection event. , [phone], or [phone]; Discharge Date/Time: 01/18/22 17:08
[2022-01-18 15:59] LABS: BASOPHILS % (AUTO) 0.4 %; EOSINOPHILS # (AUTO) 0.2 10^3/uL (0.0-0.7); EOSINOPHILS % (AUTO) 1.9 %; HCT - HEMATOCRIT 41.8 % (37.0-47.0); HGB - HEMOGLOBIN 13.3 g/dL (12.0-16.0); LYMPHOCYTES % (AUTO) 21.4 %; MEAN CORPUSCULAR HEMOGLOBIN 26.9 pg (27.0-31.0); MEAN CORPUSCULAR HGB CONC 31.8 g/dL (32.0-36.0); MEAN CORPUSCULAR VOLUME 84.6 fL (81.0-99.0); MEAN PLATELET VOLUME 9.7 fL (7.9-10.8); MONOCYTES # (AUTO) 0.8 10^3/uL (0.0-1.0); MONOCYTES % (AUTO) 8.2 %; NEUTROPHILS # (AUTO) 6.4 10^3/uL (1.5-6.6); NEUTROPHILS % (AUTO) 67.7 %; PLT - PLATELET COUNT 241 10^3/uL (130-450); RED BLOOD COUNT 4.94 10^6/uL (4.20-5.40); RED CELL DISTRIBUTION WIDTH 14.8 % (12.0-15.0); WHITE BLOOD COUNT 9.4 x10^3/uL (4.8-10.8)
[2022-01-18] MEDS ORDERED: IOVERSOL 320 100 ML VIAL IVP ONE ×2 (15:59→17:18)
[2022-01-18 16:06] LABS: CALCIUM 9.1 mg/dL (8.5-10.3); CREATININE 0.8 mg/dL (0.4-1.0)
--- NOTE | 2022-01-18 16:47 | CT Report ---
PROCEDURE: CT pelvis with contrast INDICATIONS: perirectal abscess CONTRAST: IV CONTRAST: Optiray 320 ml: 100 PO CONTRAST: *NO PO CONTRAST TECHNIQUE: After the administration of contrast, 5 mm thick sections acquired from the iliac crests to the s ymphysis. 5 mm thick coronal and sagittal reformats were acquired. For radiation dose reduction, th e following was used: automated exposure control, adjustment of mA and/or kV according to patient si ze. COMPARISON: CT abdomen and pelvis 06/29/2018 FINDINGS: Image quality: Excellent. Peritoneum and bowel: Contrast enhanced bowel loops demonstrate normal wall thickness and caliber. No free fluid or air. Multiple diverticuli impression the sigmoid colon without evidence of diverticu litis. No perirectal abscess Genitourinary: Bladder wall thickness is normal. Hysterectomy. Nodes and vessels: No iliac, pelvic, or inguinal adenopathy. Iliac vessels demonstrate normal size and enhancement. Bones: No suspicious bony lesions. Miscellaneous: No inguinal hernias. IMPRESSION: Diverticulosis without evidence of diverticulitis or perirectal abscess Reviewed by: Sincere Lozano MD on 01/18/2022 3:45 PM AKDT Approved by: Sincere Lozano MD on 01/18/2022 3:45 PM AKDT Station ID: [id number]
[2022-01-18] MEDS ORDERED: CLINDAMYCIN 150 MG CAPSULE PO STA (16:54)
== END 2022-01-18 17:08 | disposition home or self-care (01) ==
LOC: ED 15:14
DX: K61.0 Anal abscess (principal); F17.200 Nicotine dependence, unspecified, uncomplicated
CPT/HCPCS: 36415; 46050; 72193; 80048; 85025; 87070; 87205; 99282; 99284; A9270; Q9967; 87077; 87181

== ENCOUNTER 2022-01-20 16:52 | Emergency (ER) | payer OTHER ==
[2022-01-20] MEDS ORDERED: LORazepam 2 MG/ML VIAL IM STA (17:17)
[2022-01-20] MEDS ORDERED: LIDOCAINE 1%-EPI 1:100000 20 ML MDV SUBQ STA (17:17)
--- NOTE | 2022-01-20 17:18 | ED Physician Documentation ---
PD HPI WOUND RECHECK - Stated complaint Stated Complaint: WOUND ON BACKSIDE - Chief complaint Chief Complaint: Wound - Histroy obtained from History obtained from: Patient (She was here 2 days ago with a perianal abscess that was incised and drained. Since then the drainage has stopped and has recollected with increased pain. 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: Hysterectomy - Present Medications Home Medications: Ambulatory Orders Medication Instructions Recorded Confirmed Indomethacin 25 mg PO DAILY PRN 06/08/15 02/27/21 Omeprazole [Prilosec] 20 mg PO DAILY 06/08/15 02/27/21 Thyroid,Pork [[place] Thyroid] 60 mg PO DAILY 06/08/15 02/27/21 diazePAM [Diazepam] 7.5 mg PO DAILY 06/08/15 02/27/21 Gabapentin [Neurontin] 300 mg PO HS 02/27/21 02/27/21 Ondansetron Odt [Zofran Odt] 4 mg TL Q6H PRN #10 tablet 02/27/21 clindamycin HCL [Clindamycin HCl] 300 mg PO Q6H #40 cap 02/27/21 Ondansetron Odt [Zofran] 4 mg TL Q6H PRN #10 tablet 01/18/22 Oxycodone HCl/Acetaminophen 1 - 2 each PO Q6H PRN #14 tablet 01/18/22 [Percocet 5-325 mg Tablet] clindamycin HCL [Cleocin HCl] 300 mg PO Q6H #40 cap 01/18/22 - Allergies Allergies/Adverse Reactions: Allergies Allergy/AdvReac Type Severity Reaction Status Date / Time alprazolam [From Xanax] Allergy Unknown Verified 02/27/21 20:28 buspirone Allergy Unknown Verified 02/27/21 20:28 hydromorphone [From Dilaudid] Allergy Hallucinati Verified 01/18/22 15:26 ons levothyroxine sodium Allergy Unknown Verified 02/27/21 20:28 [From Synthroid] morphine Allergy Unknown Verified 02/27/21 20:28 - Social History Does the pt smoke?: Yes Smoking Status: Current every day smoker Does the pt drink ETOH?: No Does the pt have substance abuse?: No - Immunizations Immunizations are current?: No - POLST Patient has POLST: No PD ED PE NORMAL - Vitals Vital signs reviewed: Yes - General General: Alert and oriented X 3, No acute distress - Female Female : Other (There is a left perianal pointed abscess with no spontaneous drainage, all exams and procedures done with nurse Mala present.) - Derm Derm: Normal color, Warm and dry - Neuro Neuro: Alert and oriented X 3, Normal speech Results - Vitals Vitals: Vital Signs - 24 hr 01/20/22 17:00 Temperature 36.5 C Heart Rate 82 Respiratory 18 Rate Blood Pressure 154/92 H O2 Saturation 96 Oxygen O2 Source Room air Procedures - Abscess I&D (location) Left perianal Preparation: Lidocaine 1%, With epi, Other (pretreat with 2mg ativan IM) Incision: Incised with scalpel, Purulent drainage, Packed (with 1/4 packing) Other: Pt tolerated well, Dressing applied PD MEDICAL DECISION MAKING - ED course ED course: 51-year-old woman presents with a recurrence of a left perianal abscess and repeat I&D was necessary. She had a lot of pain last time but did not want Dilaudid so was pretreated with 2 mg of Ativan IM. Still had a lot of pain with local anesthetic and conscious sedation was offered but declined. A fair amount of pus was drained and this time she was packed with quarter inch packing. Departure - Departure Disposition: 01 Home, Self Care Clinical Impression: Perianal abscess Condition: Good Record reviewed to determine appropriate education?: Yes Instructions: Perianal Abscess Comments: Continue current wound care regimen but recognize that you have packing in place now. Follow-up with your doctor tomorrow for reevaluation. Continue current antibiotics.
[2022-01-20 18:14] VITALS: BP 150/89
== END 2022-01-20 18:13 | disposition home or self-care (01) ==
LOC: ED 16:52
DX: K61.0 Anal abscess (principal); F17.200 Nicotine dependence, unspecified, uncomplicated
CPT/HCPCS: 46050; 96372; 99282; 99283; J2060

== ENCOUNTER 2022-10-17 08:46 | Outpatient (CLI) | payer OTHER ==
[2022-10-17 12:10] LABS: BASOPHILS # (AUTO) 0.1 10^3/uL (0.0-0.1); BASOPHILS % (AUTO) 0.8 %; EOSINOPHILS # (AUTO) 0.1 10^3/uL (0.0-0.7); EOSINOPHILS % (AUTO) 1.2 %; HCT - HEMATOCRIT 47.1 % (37.0-47.0); HGB - HEMOGLOBIN 14.6 g/dL (12.0-16.0); LYMPHOCYTES # (AUTO) 1.4 10^3/uL (1.5-3.5); LYMPHOCYTES % (AUTO) 23.3 %; MEAN CORPUSCULAR VOLUME 83.8 fL (81.0-99.0); MEAN PLATELET VOLUME 10.8 fL (7.9-10.8); MONOCYTES # (AUTO) 0.5 10^3/uL (0.0-1.0); MONOCYTES % (AUTO) 7.7 %; NEUTROPHILS % (AUTO) 66.8 %; PLT - PLATELET COUNT 268 10^3/uL (130-450); RED BLOOD COUNT 5.62 10^6/uL (4.20-5.40); RED CELL DISTRIBUTION WIDTH 14.7 % (12.0-15.0)
[2022-10-17 12:33] LABS: ALBUMIN 3.9 g/dL (3.2-5.5); ALKALINE PHOSPHATASE 51 IU/L (42-121); ALT ALANINE AMINOTRANSFERASE 18 IU/L (10-60); AST ASPARTATE AMINOTRANSFERASE 17 IU/L (10-42); BILIRUBIN,TOTAL 0.4 mg/dL (0.2-1.0); BUN - BLOOD UREA NITROGEN 15 mg/dL (6-20); CALCIUM 9.3 mg/dL (8.5-10.3); CARBON DIOXIDE - CO2 27 mmol/L (21-32); CHLORIDE 100 mmol/L (101-111); CHOLESTEROL 215 mg/dL; CREATININE 0.8 mg/dL (0.4-1.0); GFR - MDRD 76 (>89); GLUCOSE 103 mg/dL (70-100); HDL CHOLESTEROL 36 mg/dL; LDL CHOLESTEROL,CALCULATED 137 mg/dL; LDL/HDL RATIO 3.8 (<4.4); POTASSIUM 4.4 mmol/L (3.5-5.0); SODIUM 135 mmol/L (135-145); TRIGLYCERIDES 210 mg/dL; VLDL CHOLESTEROL 42 mg/dL
[2022-10-17 12:40] LABS: THYROID STIMULATING HORMONE 2.69 uIU/mL (0.34-5.60)
== END 2022-10-17 08:47 | disposition home or self-care (01) ==
LOC: LAB.N 08:46
PROVIDERS: ATTEND Physician Assistant Medical
DX: Z00.00 Encounter for general adult medical examination without abnormal findings (principal); E78.5 Hyperlipidemia, unspecified; E03.9 Hypothyroidism, unspecified
CPT/HCPCS: 36415; 80053; 80061; 83721; 84443; 85025

== ENCOUNTER 2022-10-21 07:42 | Outpatient (CLI) | payer OTHER ==
--- NOTE | 2022-10-21 08:28 | Ultrasound Report ---
PROCEDURE: Duplex Ext Veins Left INDICATIONS: LEFT LEG PAIN TECHNIQUE: Real-time imaging, as well as color and pulse Doppler interrogation, were performed of the lower extr emity deep veins from the inguinal ligament to the popliteal fossa. COMPARISON: None. FINDINGS: The deep veins are normally compressible, and free of intraluminal thrombus. Color and pu lse Doppler demonstrate normal phasic intraluminal flow. There is normal augmentation response to di stal compression maneuver. Incidentally noted of slow moving blood within left common femoral vein. IMPRESSION: No evidence of DVT in visualized left lower extremity veins. Incidentally noted of slow moving blood in left common femoral vein and is a nonspecific finding. Reviewed by: Cayetano Valderrama MD on 10/21/2022 8:27 AM PST Approved by: Cayetano Valderrama MD on 10/21/2022 8:27 AM PST Station ID: [id number]
== END 2022-10-21 07:43 | disposition home or self-care (01) ==
LOC: DI 07:42
PROVIDERS: ATTEND Physician Assistant Medical
DX: M79.605 Pain in left leg (principal)

== ENCOUNTER 2023-01-07 14:45 | Emergency (ER) | payer OTHER ==
--- NOTE | 2023-01-07 15:29 | XRAY Report ---
PROCEDURE: Finger(s) RT INDICATIONS: Trauma TECHNIQUE: AP hand, 2 views of the fourth finger(s) acquired. COMPARISON: None. FINDINGS: Bones: Comminuted, mildly displaced fracture of the fourth phalanx tuft. Soft tissues: No suspicious soft tissue calcifications or masses. IMPRESSION: Fourth phalanx tuft fracture. Reviewed by: Kenton Love on 01/07/2023 3:28 PM PDT Approved by: Kenton Love on 01/07/2023 3:28 PM PDT Station ID: [id number]
[2023-01-07] MEDS ORDERED: TETANUS/DIPHTHERIA/PERTUSSIS 0.5 ML SYRINGE IM ONE (16:49)
[2023-01-07] MEDS ORDERED: BACITRACIN ZINC OINT 1 PACKET TOP STA (16:49)
--- NOTE | 2023-01-07 17:06 | ED Physician Documentation ---
History of Present Illness - Stated complaint Stated Complaint: RING FINGER LAC - Chief complaint Chief Complaint: Laceration - Additonal information Additional information: 52-year-old female, [id number], presents emergency department for evaluation of acute right ring finger injury. A heavy wooden box that she estimates weighs between 80 to 100 pounds accidentally slammed against her finger. She does have a running lacerationThat ranges under the nailbed to the medial edge of the finger. 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 - Present Medications Home Medications: Ambulatory Orders Medication Instructions Recorded Confirmed Indomethacin 25 mg PO DAILY PRN 06/08/15 02/27/21 Omeprazole [Prilosec] 20 mg PO DAILY 06/08/15 02/27/21 Thyroid,Pork [[place] Thyroid] 60 mg PO DAILY 06/08/15 02/27/21 diazePAM [Diazepam] 7.5 mg PO DAILY 06/08/15 02/27/21 Gabapentin [Neurontin] 300 mg PO HS 02/27/21 02/27/21 Ondansetron Odt [Zofran Odt] 4 mg TL Q6H PRN #10 tablet 02/27/21 clindamycin HCL [Clindamycin HCl] 300 mg PO Q6H #40 cap 02/27/21 Ondansetron Odt [Zofran] 4 mg TL Q6H PRN #10 tablet 01/18/22 Oxycodone HCl/Acetaminophen 1 - 2 each PO Q6H PRN #14 tablet 01/18/22 [Percocet 5-325 mg Tablet] clindamycin HCL [Cleocin HCl] 300 mg PO Q6H #40 cap 01/18/22 cephALEXin [Keflex] 500 mg PO Q6H #28 cap 01/07/23 oxyCODONE [Roxicodone] 5 mg PO TID PRN #15 tablet 01/07/23 - Allergies Allergies/Adverse Reactions: Allergies Allergy/AdvReac Type Severity Reaction Status Date / Time alprazolam [From Xanax] Allergy Unknown Verified 01/07/23 14:57 buspirone Allergy Unknown Verified 01/07/23 14:57 hydromorphone [From Dilaudid] Allergy Hallucinati Verified 01/07/23 14:57 ons levothyroxine sodium Allergy Unknown Verified 01/07/23 14:57 [From Synthroid] morphine Allergy Unknown Verified 01/07/23 14:57 - Social History Does the pt smoke?: Yes Smoking Status: Current every day smoker Does the pt drink ETOH?: No Does the pt have substance abuse?: No - Immunizations Immunizations are current?: No - POLST Patient has POLST: No PD ED PE EXPANDED - Extremities Extremities: Right finger(s) (Bleeding noted under the distal nail bed. Superficial laceration along the medial edge of the nail. Swollen and ecchymotic distal tip. Otherwise neurovascularly intact) Results - Vitals Vitals: Vital Signs - 24 hr 01/07/23 14:53 Temperature 36.7 C Heart Rate 82 Respiratory 16 Rate Blood Pressure 149/86 H O2 Saturation 97 Oxygen O2 Source Room air - Rads (name of study) right hand xray Relevant Findings:: Final report received (Fourth distal phalanx tuft fracture) Procedures - Laceration (location) finger laceration Length in cm: 0.2 Wound type: Into subcut fat Neurovascular status: Sensory intact, Motor intact Tendon involvement: Tendon intact Anesthesia: Lidocaine 1% Wound preparation: Chlorhexadine, Irrigated copiously NS Skin layer closure: Dermabond Other: Tetanus booster given PD Medical Decision Making - ED course Complexity details: reviewed results, considered differential, d/w patient ED course: 52-year-old female presents emergency department for evaluation of injury to the distal tip of her right ring finger sustained when a heavy box crushed it. She does have some significant swelling and ecchymosis of the distal tip. An x-ray is interpreted by the radiologist does show a tuft fracture. There is a laceration that I believe runs underneath the nailbed just to the medial edge of the nail itself. The nail itself however is intact. The medial edge of the laceration was simply closed with glue. Patient's tetanus was updated today. Given the nature of this fracture which would be considered open she will be started on Keflex. Advised to follow close with PCP for referral to orthopedics. Limited prescription for oxycodone was sent to the pharmacy. Finger splint was provided for comfort. The usual emergent return precautions for worsening symptoms were discussed Departure - Departure Disposition: 01 Home, Self Care Clinical Impression: Open fracture of tuft of distal phalanx of finger Laceration of ring finger Qualifiers: Encounter type: sequela Damage to nail status: with damage Foreign body presence: without foreign body Laterality: right Qualified Code(s): S61.314S - Laceration without foreign body of right ring finger with damage to nail, sequela Condition: Stable Record reviewed to determine appropriate education?: Yes Instructions: ED Fx Finger Open Follow-Up: Sruthi Groves PA-C [Primary Care Provider] - Prescriptions: cephALEXin [Keflex] 500 mg PO Q6H #28 cap oxyCODONE [Roxicodone] 5 mg PO TID PRN #15 tablet PRN Reason: Pain Comments: November the x-ray shows that the distal phalanx of your finger is fractured. This is called a tuft fracture. 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 A prescription for Keflex has been sent to the pharmacy. You should fill it and begin taking 4 times a day for the next week. There is a laceration or injury that runs under the nailbed but the nail is intact. I would simply like you to apply triple antibiotic ointment to the distal edge of your nail. Please wear the aluminum finger splint for comfort. It is important you discuss this with your primary provider. You should obtain referral to orthopedics for follow-up. In the long-term there is likely no intervention or treatment for this fracture but should be seen by the bone specialist. Return to the emergency department if you have worse symptoms, fevers milky drainage increased pain or any concerns of infection. I do encourage you to elevate your finger is much as you can over the next several days to help reduce pain and swelling.
[2023-01-07 17:53] VITALS: BP 135/84
== END 2023-01-07 17:53 | disposition home or self-care (01) ==
LOC: ED 14:45
DX: S62.634B Displaced fracture of distal phalanx of right ring finger, initial encounter for open fracture (principal); W22.8XXA Striking against or struck by other objects, initial encounter; F17.200 Nicotine dependence, unspecified, uncomplicated; E03.9 Hypothyroidism, unspecified; Z79.899 Other long term (current) drug therapy
CPT/HCPCS: 12001; 73140; 90471; 90715; 99283; A9270

== ENCOUNTER 2023-01-19 08:00 | Outpatient (CLI) | payer OTHER ==
--- NOTE | 2023-01-19 10:58 | XRAY Report ---
PROCEDURE: Finger(s) RT INDICATIONS: RIGHT 4TH FINGER FX TECHNIQUE: AP hand, 2 views of the fourth finger(s) acquired. COMPARISON: None. FINDINGS: Bones: Interval bone remodeling of the fourth tuft fracture. Soft tissues: No suspicious soft tissue calcifications or masses. IMPRESSION: Interval healing of the fourth tuft fracture. Reviewed by: Kenton Love on 01/19/2023 9:56 AM MALA Approved by: Kenton Love on 01/19/2023 9:56 AM MALA Station ID: [id number]
== END 2023-01-19 23:59 | disposition home or self-care (01) ==
LOC: DI.WOS 08:00
PROVIDERS: ATTEND Orthopaedic Surgery
DX: S62.634D Displaced fracture of distal phalanx of right ring finger, subsequent encounter for fracture with routine healing (principal)

== ENCOUNTER 2023-02-16 08:00 | Outpatient (CLI) | payer OTHER ==
--- NOTE | 2023-02-16 16:32 | XRAY Report ---
PROCEDURE: Finger(s) RT INDICATIONS: RIGHT 4TH FINGER FRACTURE TECHNIQUE: AP hand, 2 views of the fourth digit acquired. COMPARISON: Hand and finger radiographs 01/19/2023 FINDINGS: Bones: Redemonstrated mildly displaced comminuted fracture of the fourth digit distal phalanx involv ing the tuft. Appearance of the fracture is similar to before. Soft tissues: No suspicious soft tissue calcifications. IMPRESSION: Similar appearance of the previously demonstrated fourth digit distal phalanx fracture. Reviewed by: Marco Antonio Wise MD on 02/16/2023 4:30 PM PDT Approved by: Marco Antonio Wise MD on 02/16/2023 4:30 PM PDT Station ID: [id number]
== END 2023-02-16 23:59 | disposition home or self-care (01) ==
LOC: DI.WOS 08:00
PROVIDERS: ATTEND Orthopaedic Surgery
DX: S62.634D Displaced fracture of distal phalanx of right ring finger, subsequent encounter for fracture with routine healing (principal)

== ENCOUNTER 2023-06-15 12:51 | Outpatient (CLI) | payer OTHER ==
--- NOTE | 2023-06-16 09:37 | Mammography Report ---
BILATERAL DIGITAL SCREENING MAMMOGRAM 3D/2D: 06/15/2023 CLINICAL: Routine screening. Comparison is made to exams dated: 08/03/2020 mammogram, 07/08/2019 mammogram, 06/17/2018 mammogram, mammogram, and 12/14/2013 mammogram - [facility]. Both breasts are heterogeneously dense, which may obscure small masses (category c / 51-75% glandular tissue). No significant masses, calcifications, or other findings are seen in either breast. There has been no significant interval change. IMPRESSION: NEGATIVE There is no mammographic evidence of malignancy. A 1 year screening mammogram is recommended. Based on Tyrer-Cuzick model (a risk assessment model), the patient's lifetime risk is 21.4% and her 1 0 year risk is 6.3%. If a patient has an elevated risk, a more comprehensive evaluation should be con sidered and/or a referral to a genetic counselor. The [place] [employer], [employer] [employer], and NCCN Guidelines advise the consideration of Breast MRI as an adjunct to screening mammog marvin in patients whose "Lifetime risk to develop breast cancer" is 20% or higher. This exam was interpreted at Station ID: [id number]. NOTE: For mammograms, a report in lay terms will be sent to the patient. Approximately 15% of breast malignancies will not be visualized mammographically. In the management of a palpable breast mass, a negative mammogram must not discourage biopsy of a clinically suspicious lesion. Electronically Signed By: Marcie quiroz/audrey:06/15/2023 17:13:34 letter sent: No_Letter ACR BI-RADS Category 1: Negative 3341F PARENCHYMAL PATTERN: (D) - The breast(s) demonstrate(s) heterogeneously dense fibroglandular [place]. BI-RADS CATEGORY: (1) - 1 Mammogram [id number] 1 year screening LATERALITY: (B)
== END 2023-06-15 12:52 | disposition home or self-care (01) ==
LOC: DI.N 12:51
DX: Z12.31 Encounter for screening mammogram for malignant neoplasm of breast (principal); R92.333 Mammographic heterogeneous density, bilateral breasts

== ENCOUNTER 2023-06-21 12:31 | Outpatient (CLI) | payer OTHER ==
--- NOTE | 2023-06-21 17:31 | Ultrasound Report ---
PROCEDURE: Head or Neck Soft Tissue INDICATIONS: THYROID NODULE TECHNIQUE: Real-time scanning was performed of the thyroid gland, with image documentation. COMPARISON: None FINDINGS: Right: Thyroid lobe measures 3.0 x 1.4 x 1.2 cm, and is homogeneous in echotexture. Left: Thyroid lobe measures 3.8 x 1.5 x 1.4 cm, and is homogenous in echotexture. Isthmus: 0.2 mm thick. Nodule number: One Location: Right mid Size: 1.1 x 0.8 x 0.9 cm compared to 1.0 x 0.6 x 0.6 cm. Composition: Solid. Echogenicity: Hypoechoic. Shape: wider than tall ( Margins: Smooth Echogenic foci: None Total points: 4 ACR TI-RADS category: 4 Nodule number: Two Location: Left mid superior Size: 1.2 x 0.9 x 0.7 cm compared to 1.0 x 1.0 x 1.3 cm. Composition: Solid. Echogenicity: Hypoechoic. Shape: wider than tall Margins: Smooth Echogenic foci: None Total points: 4 ACR TI-RADS category: 4 Nodule number: Three Location: Left mid inferior Size: 0.9 x 0.9 x 0.8 cm compared to 0.9 x 0.9 x 1.1 cm. Composition: Solid. Echogenicity: Hypoechoic (2 points). Shape: wider than tall Margins: Smooth Echogenic foci: None Total points: 4 ACR TI-RADS category: 4 Scattered lymph nodes at the neck bilaterally in level. 2.. On the right and measures 1.5 x 2.3 x 0.8 cm, unchanged. 1.4 X 1.4 x 1.0 cm on the left compared to 2.6 x 1.2 x 0.9. IMPRESSION: Stable thyroid nodules all considered category 4 and recommend follow-up as below. Stable appearance of lymph nodes in the right neck. Size of lymph nodes in the left neck and decrease d in size. ACR TI-RADS definitions and recommendations: TI-RADS 1 (benign): 0 points. FNA not needed. TI-RADS 2 (not suspicious): 2 points. FNA not needed. TI-RADS 3 (mildly suspicious): 3 points. "FNA if 2.5 cm or larger, follow up if 1.5 cm or larger (at 1, 3, and 5 years). TI-RADS 4 (moderately suspicious): 4-6 points. "FNA if 1.5 cm or larger, follow up if 1 cm or larger (at 1, 2, 3, and 5 years). TI-RADS 5 (highly suspicious): 7 points or more. "FNA if 1 cm or larger, follow up if 0.5 cm or larger (every year for 5 years). Reviewed by: Grisel Gonzalez MD on 06/21/2023 5:29 PM PDT Approved by: Grisel Gonzalez MD on 06/21/2023 5:29 PM PDT Station ID: [id number]
== END 2023-06-21 12:32 | disposition home or self-care (01) ==
LOC: DI 12:31
PROVIDERS: ATTEND Physician Assistant Medical
DX: E04.2 Nontoxic multinodular goiter (principal)

== ENCOUNTER 2024-05-21 13:17 | Emergency (ER) | payer OTHER ==
--- NOTE | 2024-05-21 13:51 | ED Physician Documentation ---
PD HPI HEADACHE - Stated complaint Stated Complaint: LOST VISION TEMPORARILY, C+ (PER PAT) - Chief complaint Chief Complaint: Neuro - History obtained from History obtained from: Patient - Additional information Additional information: She has been under a lot of stress lately with lack of sleep and caring for family and she also developed COVID. She hurt her back a few days ago and earlier today she had taken some gabapentin and Tylenol for that and was sitting on the couch watching TV when she lost vision in both eyes. She said it was like a kaleidoscope in both eyes that she could not see through. It lasted about 7 minutes and then went away with some weird feelings in her brain and very mild right head pressure. She does have a history of migraines in the past. Vision is completely back to normal now. 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 : None HEENT: Chronic vision loss Psych: Anxiety, Panic attacks Musculoskeletal: Osteoarthritis, Gout, Other Derm: None - Past Surgical History Past Surgical History: Yes General: Cholecystectomy, Colonoscopy, EGD /SUPERVISOR SANDBLASTER: Hysterectomy - Present Medications Home Medications: Ambulatory Orders Medication Instructions Recorded Confirmed Indomethacin 25 mg PO DAILY PRN 06/08/15 02/27/21 Omeprazole [Prilosec] 20 mg PO DAILY 06/08/15 02/27/21 Thyroid,Pork [[place] Thyroid] 60 mg PO DAILY 06/08/15 02/27/21 diazePAM [Diazepam] 7.5 mg PO DAILY 06/08/15 02/27/21 Gabapentin [Neurontin] 300 mg PO HS 02/27/21 02/27/21 Ondansetron Odt [Zofran Odt] 4 mg TL Q6H PRN #10 tablet 02/27/21 clindamycin HCL [Clindamycin HCl] 300 mg PO Q6H #40 cap 02/27/21 Ondansetron Odt [Zofran] 4 mg TL Q6H PRN #10 tablet 01/18/22 Oxycodone HCl/Acetaminophen 1 - 2 each PO Q6H PRN #14 tablet 01/18/22 [Percocet 5-325 mg Tablet] clindamycin HCL [Cleocin HCl] 300 mg PO Q6H #40 cap 01/18/22 cephALEXin [Keflex] 500 mg PO Q6H #28 cap 01/07/23 oxyCODONE [Roxicodone] 5 mg PO TID PRN #15 tablet 01/07/23 - Allergies Allergies/Adverse Reactions: Allergies Allergy/AdvReac Type Severity Reaction Status Date / Time alprazolam [From Xanax] Allergy Unknown Verified 05/21/24 13:26 buspirone Allergy Unknown Verified 05/21/24 13:26 hydromorphone [From Dilaudid] Allergy Hallucinati Verified 05/21/24 13:26 ons levothyroxine sodium Allergy Unknown Verified 05/21/24 13:26 [From Synthroid] morphine Allergy Unknown Verified 05/21/24 13:26 - Social History Does the pt smoke?: Yes Smoking Status: Current every day smoker Does the pt drink ETOH?: No Does the pt have substance abuse?: Yes Substance Use and Type: Marijuana - Immunizations Immunizations are current?: No Immunizations: Other immun not current - POLST Patient has POLST: No PD ED PE NORMAL - Vitals Vital signs reviewed: Yes - General General: Alert and oriented X 3, No acute distress - HEENT HEENT: PERRL, EOMI, Pharynx benign - Neck Neck: Supple, no meningeal sign, No bony TTP - Neuro Neuro: Alert and oriented X 3, equipment analyst 2-12 intact, No motor deficit, No sensory deficit, Normal speech Eye Opening: Spontaneous Motor: Obeys Commands Verbal: Oriented GCS Score: 15 Results - Vitals Vitals: Vital Signs - 24 hr 05/21/24 05/21/24 13:26 13:33 Temperature 36.8 C Heart Rate 80 71 Respiratory 16 16 Rate Blood Pressure 162/109 H 176/120 H O2 Saturation 97 95 Oxygen O2 Source Room air - Rads (name of study) CT of the head showing mild ethmoid sinusitis, no acute disease. Relevant Findings:: Final report received, EMP independent interpretation of test PD Medical Decision Making - ED course ED course: The description is very typical for an ophthalmic migraine, resolved. She still having some odd feelings in her brain but did not want any migraine medicine. Out of an abundance of caution we will to a CT of her brain but pretest probability for structural disease is low. Departure - Departure Disposition: 01 Home, Self Care Clinical Impression: Ocular migraine Condition: Good Record reviewed to determine appropriate education?: Yes Instructions: ED Headache Migraine Comments: The CAT scan of your head was normal without signs of stroke, mass lesion etc. Your description was very consistent with an ophthalmic migraine. Call your doctor to arrange a follow-up appointment, make the next available appointment. In the interim, return anytime if worse or if new symptoms develop. Forms: PCP List
--- NOTE | 2024-05-21 14:32 | CT Report ---
PROCEDURE: Head WO INDICATIONS: headache TECHNIQUE: Noncontrast 4.5 mm thick angled axial sections acquired from the foramen magnum to the vertex. For r adiation dose reduction, the following was used: automated exposure control, adjustment of mA and/or kV according to patient size. COMPARISON: None. FINDINGS: Image quality: Excellent. CSF spaces: Basal cisterns are patent. No extra-axial fluid collections. Ventricles are normal in size and shape. Brain: No midline shift. No intracranial masses or hemorrhage. Dean-white matter interface is norm al. Skull and face: Calvarium and visualized facial bones are intact, without suspicious lesions. Sinuses: Opacification of left posterior ethmoid air cells.. IMPRESSION: No acute intracranial pathology. Mild left ethmoid sinusitis. Reviewed by: Adam Moore MD on 05/21/2024 1:30 PM AKDT Approved by: Adam Moore MD on 05/21/2024 1:30 PM AKDT Station ID: [id number]
[2024-05-21 15:07] VITALS: BP 118/81; O2SAT 97
== END 2024-05-21 14:59 | disposition home or self-care (01) ==
LOC: ED 13:17
DX: G43.809 Other migraine, not intractable, without status migrainosus (principal); E03.9 Hypothyroidism, unspecified; G47.30 Sleep apnea, unspecified; Z79.899 Other long term (current) drug therapy; F17.200 Nicotine dependence, unspecified, uncomplicated
CPT/HCPCS: 99283; 99284